=== PATIENT | female | born 1960 | race Caucasian/White ===

== ENCOUNTER 2019-12-23 05:38 | Day surgery (SDC) | payer BC ==
[~2019-12-23 05:38] MED LIST: Buffered Lidocaine 1% SYRIN* 1 ML/SYRINGE INTRADERM ONE
[2019-12-23] MEDS ORDERED: Famotidine IV* 10 MG/ML 2 ML (20 mg) IV ONE (06:00)
[2019-12-23] MEDS ORDERED: Dexamethasone IV* 4 MG/ML 1 ML (4 MG) IV SLOW PU ONE (06:00)
[2019-12-23] MEDS ORDERED: Lactated Ringers 1000 ML Bag* 1,000 ML IV SCH (06:00)
[2019-12-23] MEDS ORDERED: Dexamethasone IV* 4 MG/ML 1 ML (4 MG) ONE (06:09)
[2019-12-23] MEDS ORDERED: Famotidine IV* 10 MG/ML 2 ML (20 mg) ONE (06:09)
[2019-12-23] MEDS ORDERED: Heparin VIAL(*) 5000 UNITS/ML VIAL (FIVE THOUSAND) ONE (06:09)
[2019-12-23] MEDS ORDERED: Ondansetron INJ* 2 MG/ML VIAL IV PRN (07:14)
[2019-12-23] MEDS ORDERED: Naloxone* 0.4 MG/ML 1 ML VIAL IV PRN (07:14)
[2019-12-23] MEDS ORDERED: fentaNYL* 50 MCG/ML 2 ML VIAL (100 MCG VIAL) IV PRN (07:14)
[2019-12-23] MEDS ORDERED: DiMENhydriNATE IV* 50 MG/ML VIAL IV PUSH PRN (07:14)
[2019-12-23] MEDS ORDERED: oxyCODONE/Acetamin 5/325 MG* TAB PO PRN (07:14)
[2019-12-23] MEDS ORDERED: fentaNYL* 50 MCG/ML 5 ML VIAL (250 MCG VIAL) ONE (07:19)
[2019-12-23] MEDS ORDERED: Midazolam* 1 MG/ML 5 ML VIAL (5 MG) ONE (07:19)
[2019-12-23] MEDS ORDERED: Ondansetron INJ* 2 MG/ML VIAL ONE (07:20)
[2019-12-23] MEDS ORDERED: Ketorolac INJ* 30 MG/ML 1 ML VIAL ONE (07:20)
[2019-12-23] MEDS ORDERED: Propofol* 10 MG/ML 20 ML BTL ONE (07:20)
[2019-12-23] MEDS ORDERED: Lidocaine 2% PF * 5 ML VIAL ONE (07:20)
[2019-12-23] MEDS ORDERED: Ibuprofen TAB* 600 MG PO PRN (08:33)
[2019-12-23 09:34] VITALS: BP 164/89
--- NOTE | 2019-12-23 23:06 | OP ---
DATE OF OPERATION: 12/23/19 [facility] DATE OF : 62 SURGEON: Caleb Anglin MD ANESTHESIOLOGIST: Dr. Dimas. ANESTHESIA: General endotracheal anesthesia. PRE-OP DIAGNOSES: Postmenopausal bleeding and polyp on ultrasound and exam. POST-OP DIAGNOSIS: Postmenopausal bleeding and polyp on ultrasound and exam. OPERATIVE PROCEDURE: Dilation, hysteroscopy, MyoSure polypectomy, curettage. ESTIMATED BLOOD LOSS: Minimal, less than 20 cc. FINDINGS: Midline cervix, retroverted uterus. Uterus sounds to 7.5. Both tubal ostia were visualized. The endometrium appeared atrophic. There were no endometrial polyps or intracavitary fibroids seen. There was an endocervical polyp originating on the left side that was long and thin protruding to the level of the external os. COMPLICATIONS: None. COUNTS: Sponge count correct x2. CONDITION: The patient was brought to recovery room awake and in stable condition. DESCRIPTION OF PROCEDURE: The patient was brought to the operating room when general anesthesia was found to be adequate. The patient was prepped and draped in the usual sterile fashion in the dorsal lithotomy position. Time-out was performed. The patient had received 1 dose of subcutaneous heparin preoperatively due to a very strong family history of DVT and PE. Exam under anesthesia was performed with the above findings noted. The weighted speculum was placed in the vagina. The anterior lip of the cervix was grasped with a single-tooth tenaculum, and the cervix was gently and easily dilated with the graduated Hegar dilators. The uterus sounded to 7.5. The MyoSure scope was introduced with the above findings noted. The endocervical polyp was removed in its entirety. The single-tooth tenaculum was removed from the anterior lip of the cervix. Excellent hemostasis was noted. All instruments were removed from the vagina. The deficit was 300 cc. The patient tolerated the procedure well. Sponge count was correct x2 and the patient was brought to the recovery room awake and in stable condition. [id number]/[facility] #: [id number] [facility]
== END 2019-12-23 09:35 | disposition home or self-care (01) ==
LOC: OR 05:38
PROVIDERS: ATTEND Obstetrics & Gynecology
DX: N95.0 Postmenopausal bleeding (principal); N84.0 Polyp of corpus uteri; M06.9 Rheumatoid arthritis, unspecified; E03.9 Hypothyroidism, unspecified
CPT/HCPCS: 88305; J1100; J1644; J1885; J2250; J2405; J2704; J3010